=== PATIENT | female | born 1985 | race Two or more races ===

== ENCOUNTER 2017-03-11 13:56 | Emergency (ER) | payer MEDICAID, OTHER ==
[~2017-03-11] VITALS: Ht 149.9 cm; Wt 57.1 kg
[2017-03-11] MEDS ORDERED: ONDANSETRON 2MG/ML, 2ML ONE (14:28)
[2017-03-11] MEDS ORDERED: SODIUM CHLORIDE 0.9% 1,000ML IVBOLUS ONE (14:30)
[2017-03-11] MEDS ORDERED: ONDANSETRON 2MG/ML, 2ML IVPush ONE (14:30)
[2017-03-11] MEDS ORDERED: SODIUM CHLORIDE FLUSH 10ML SYR IVF ONE (14:30)
[2017-03-11 14:47] LABS: BLOOD UREA NITROGEN 10 mg/dL (7-18)
[2017-03-11 14:57] LABS: DIFF TOTAL CELLS COUNTED 100 CELL DIFF
[2017-03-11 14:59] LABS: VERIFY COUNTS? YES
[2017-03-11 15:40] VITALS: BP 104/57
== END 2017-03-11 16:30 | disposition home or self-care (01) ==
LOC: ED 16:10
DX: O26.891 Other specified pregnancy related conditions, first trimester (principal); R10.2 Pelvic and perineal pain; Z3A.08 8 weeks gestation of pregnancy
CPT/HCPCS: 36415; 76801; 80048; 81003; 82040; 84702; 85025; 96361; 96374; 99285; J2405; J7030; 96360